=== PATIENT | female | born 1940 | race African-American/Black ===

== ENCOUNTER 2022-12-29 09:59 | Outpatient (CLI) | payer OTHER | END 2022-12-29 10:00 | disposition home or self-care (01) | LOC: CSHWCC 09:59 | PROVIDERS: ATTEND Nurse Practitioner Family | DX: L89.222 Pressure ulcer of left hip, stage 2 (principal) | CPT/HCPCS: 97139; G0463; 99203 ==

== ENCOUNTER 2023-02-20 10:52 | Inpatient (IN) | payer OTHER ==
[2023-02-20 11:25] LABS: #Monocytes 0.7 10x3/uL (0.0-1.1); %Basophils 0.2 % (0.0-2.0); %Eosinophils 0.1 % (0.0-6.0); %Lymphocytes 7.2 % (18.0-47.0); %Monocytes 6.4 % (0.0-10.0); %Neutrophils 85.3 % (40.0-75.0); Hematocrit 29.4 % (34.9-44.5); Hemoglobin 9.5 g/dL (12.0-15.5); Mean Corpuscular HGB CONC 32.3 g/dL (32.0-36.0); Mean Corpuscular Volume 80.3 fl (81.6-98.3); Mean Platelet Volume 11.3 fl (7.4-10.4); Platelet Count 283 10x3/uL (150-450); RBC Distribution Width 16.5 % (11.5-14.5); Red Blood Cell (RBC) Count 3.66 10x6/uL (3.90-5.03); White Blood Cell (WBC) Count 10.6 10x3/uL (3.5-10.5)
[2023-02-20 11:41] LABS: ALT (SGPT) 8 U/L (8-55); AST (SGOT) 18 U/L (5-34); Alkaline Phosphatase 69 U/L (40-110); Anion Gap 16 mmol/L (10-20); BUN (Urea Nitrogen) 20 mg/dL (9.8-20.1); Bilirubin, Total 1.1 mg/dL (0.2-1.2); Calc. Creatinine Clearance 0 mL/min (70-130); Calcium 8.9 mg/dL (7.8-10.44); Carbon Dioxide 19 mmol/L (23-31); Chloride 108 mmol/L (98-107); Estimated GFR 40; Globulin 5.9 g/dL (2.4-3.5); Glucose 91 mg/dL (83-110); Potassium 3.6 mmol/L (3.5-5.1); Protein, Total 8.9 g/dL (5.8-8.1); Sodium 139 mmol/L (136-145)
[2023-02-20] MEDS ORDERED: Furosemide 100 MG/10 ML VIAL ONE (12:55)
[2023-02-20] MEDS ORDERED: Vancomycin 1 GM VIAL ONE (13:18)
[2023-02-20 13:25] LABS: Bilirubin Neg (Negative); Blood, Urine 10 (Negative); Clarity Slightly Cloudy (Clear); Glucose, Urine (Dipstick) Normal (Negative); Ketone, Urine 5 mg/dL (Negative); Leukocyte 100 (Negative); Nitrite Negative (Negative); Protein, Urine (Dipstick) 30 mg/dl (Neg-Trace)
[2023-02-20] MEDS ORDERED: cefTRIAXone (ROCEPHIN) 2 GM VIAL ONE (13:28)
[2023-02-20 13:40] LABS: Bacteria/HPF 3+ HPF (None Seen); CAUTI Indications for Culture Alt mental st,lethar; RBC/HPF 0-3 HPF (0-3)
[2023-02-20 13:41] LABS: Urine Culture Reflex No No
[2023-02-20] MEDS ORDERED: dilTIAZem 125 MG/25 ML SDV ONE (13:55)
[2023-02-20] MEDS ORDERED: Aspirin Chewable 81 MG TAB ONE (13:57)
[2023-02-20] MEDS ORDERED: Digoxin 0.5 MG/2 ML AMP ONE ×2 (15:00→16:17)
[2023-02-20] MEDS ORDERED: Ondansetron PF 4 MG/2 ML Vial IVP PRN (15:13)
[2023-02-20 15:21] LABS: Actual Bicarbonate (HCO3a) 19.1 mEq/L (22-28); Base Excess (BEa) -2.2 mEq/L (-2.0 to +3.0); CO2 Tension 22.9 mmHg (35.0-45.0); Calcium, Ionized (arterial) 1.14 mmol/L (1.12-1.30); Carboxyhemoglobin (COHb) 0.9 gm% (0.0-3.0); Hematocrit-ABG 31 % (36.0-47.0); Hemoglobin (Hb) 10.7 g/dL (12.0-16.0); O2 Tension (PaO2), arterial 95.8 mmHg (> 60.0); Potassium - ABG Lab 3.53 mmol/L (3.70-5.30); Puncture Site LBA; pH, Arterial 7.538 (7.35-7.45)
[2023-02-20 15:25] LABS: ALV-art Gradient 75.215 mmHg (0-20)
[2023-02-20] MEDS ORDERED: Lidocaine 1% w/Epinephrine 1:200K 30 ML VIAL ONE (15:44)
[2023-02-20 16:41] LABS: Magnesium 1.7 mg/dL (1.6-2.6); Phosphorus 3.3 mg/dL (2.3-4.7)
[2023-02-20] MEDS ORDERED: Amiodarone 150 MG/3 ML VIAL ONE (16:44)
[2023-02-20] MEDS ORDERED: Amiodarone In Dextrose 200 ML ONE (16:44)
[2023-02-20 16:54] LABS: Lactic Acid 1.5 mmol/L (0.5-2.2)
[2023-02-20] MEDS ORDERED: Meropenem 1 GM in Sodium Chloride 0.9% 100 ML IVPB SCH (18:00)
[2023-02-20] MEDS ORDERED: Amiodarone In Dextrose 200 ML IVPB SCH (19:00)
[2023-02-21] MEDS: Meropenem 1 GM in Sodium Chloride 0.9% 100 ML IVPB SCH ×2 (02:11→14:31)
[2023-02-21 04:24] LABS: Anion Gap 14 mmol/L (10-20); BUN (Urea Nitrogen) 23 mg/dL (9.8-20.1); Calc. Creatinine Clearance 53 mL/min (70-130); Calcium 8.4 mg/dL (7.8-10.44); Carbon Dioxide 18 mmol/L (23-31); Chloride 111 mmol/L (98-107); Estimated GFR 44; Glucose 90 mg/dL (83-110); Potassium 3.2 mmol/L (3.5-5.1); Sodium 140 mmol/L (136-145)
[2023-02-21 04:25] LABS: Hematocrit 27.9 % (34.9-44.5); Hemoglobin 8.8 g/dL (12.0-15.5); Mean Corpuscular HGB CONC 31.5 g/dL (32.0-36.0); Mean Corpuscular Hemoglobin 25.9 pg (27.0-33.0); Mean Corpuscular Volume 82.1 fl (81.6-98.3); Mean Platelet Volume 10.3 fl (7.4-10.4); Platelet Count 230 10x3/uL (150-450); RBC Distribution Width 16.7 % (11.5-14.5); White Blood Cell (WBC) Count 13.3 10x3/uL (3.5-10.5)
[2023-02-21 04:26] LABS: MDiff Complete? YES
[2023-02-21] MEDS ORDERED: Oseltamivir 75 MG CAP PO SCH (05:00)
[2023-02-21] MEDS: Acetaminophen 325 MG TAB PO PRN (05:08)
[2023-02-21] MEDS ORDERED: DC Electrolyte Protocol FS ONE (06:22)
[2023-02-21] MEDS ORDERED: Potassium Chloride 20 MEQ TAB PO SCH ×3 (06:30→12:00)
[2023-02-21] MEDS ORDERED: Electrolyte Replacement Protocol 1 EACH FS PRN (06:37)
[2023-02-21] MEDS ORDERED: Magnesium 2 GM/50 ML(in water) 2 GM in Premix Bag 1 BAG IVPB SCH (06:45)
[2023-02-21 06:48] LABS: Band 2 % (5-11); Lymphocytes 6 % (21-51); Monocytes 11 % (0-10); Neutrophil 81 % (42-75)
[2023-02-21 06:53] LABS: Hypochromia SLIGHT = 6-15 cells (100X) (0-5/hpf); Ovalocytes SLIGHT = 2-5 cells (100X) (0-1/hpf); Platelet Adequacy Comment Appears Adequate
[2023-02-21] MEDS: Doxycycline 100 MG in Sodium Chloride 0.9% 100 ML IVPB SCH ×2 (08:40→21:43)
[2023-02-21] MEDS ORDERED: Potassium Chloride 20 MEQ in Premix Bag 1 BAG IVPB SCH (09:45)
[2023-02-21] MEDS: Amiodarone 200 MG TAB PO SCH ×2 (11:36→21:43)
[2023-02-21] MEDS ORDERED: Acetaminophen 500 MG TAB PO PRN (14:57)
[2023-02-21 19:41] LABS: Anion Gap 15 mmol/L (10-20); BUN (Urea Nitrogen) 29 mg/dL (9.8-20.1); Calc. Creatinine Clearance 29 mL/min (70-130); Calcium 8.6 mg/dL (7.8-10.44); Carbon Dioxide 18 mmol/L (23-31); Chloride 110 mmol/L (98-107); Estimated GFR 33; Glucose 94 mg/dL (83-110); Sodium 139 mmol/L (136-145)
[2023-02-21] MEDS: Oseltamivir 6 MG/ML ORAL SUSP PO SCH (21:43)
[2023-02-22] MEDS: Meropenem 1 GM in Sodium Chloride 0.9% 100 ML IVPB SCH ×2 (01:18→14:05)
[2023-02-22 05:40] LABS: Anion Gap 15 mmol/L (10-20); BUN (Urea Nitrogen) 27 mg/dL (9.8-20.1); Calc. Creatinine Clearance 35 mL/min (70-130); Calcium 8.5 mg/dL (7.8-10.44); Carbon Dioxide 17 mmol/L (23-31); Chloride 113 mmol/L (98-107); Estimated GFR 41; Glucose 79 mg/dL (83-110); Magnesium 2.1 mg/dL (1.6-2.6); Potassium 4.1 mmol/L (3.5-5.1); Sodium 141 mmol/L (136-145)
[2023-02-22 05:42] LABS: #Monocytes 0.9 10x3/uL (0.0-1.1); #Neutrophils 9.8 10x3/uL (1.5-8.4); %Basophils 0.1 % (0.0-2.0); %Eosinophils 0.3 % (0.0-6.0); %Lymphocytes 8.1 % (18.0-47.0); %Monocytes 7.5 % (0.0-10.0); %Neutrophils 83.7 % (40.0-75.0); Hematocrit 28.8 % (34.9-44.5); Hemoglobin 8.8 g/dL (12.0-15.5); Mean Corpuscular HGB CONC 30.6 g/dL (32.0-36.0); Mean Corpuscular Hemoglobin 25.8 pg (27.0-33.0); Mean Corpuscular Volume 84.5 fl (81.6-98.3); Mean Platelet Volume 11.5 fl (7.4-10.4); Platelet Count 242 10x3/uL (150-450); RBC Distribution Width 17.2 % (11.5-14.5); Red Blood Cell (RBC) Count 3.41 10x6/uL (3.90-5.03); White Blood Cell (WBC) Count 11.7 10x3/uL (3.5-10.5)
[2023-02-22] MEDS: Atorvastatin Calcium 10 MG TAB PO SCH (08:17)
[2023-02-22] MEDS: Aspirin 81 mg Enteric Coated Tablet PO SCH (08:18)
[2023-02-22] MEDS: Losartan Potassium 50 MG TAB PO SCH (08:18)
[2023-02-22] MEDS: Doxycycline 100 MG in Sodium Chloride 0.9% 100 ML IVPB SCH ×2 (08:21→20:24)
[2023-02-22] MEDS: Oseltamivir 6 MG/ML ORAL SUSP PO SCH ×2 (08:23→20:23)
[2023-02-22] MEDS: Amiodarone 200 MG TAB PO SCH ×2 (09:50→21:02)
[2023-02-22] MEDS ORDERED: Metoprolol Tartrate 5 MG/5 ML VIAL ONE (23:33)
[2023-02-22] MEDS ORDERED: Magnesium Sulfate/D5W 1 GM/100 ML BAG IVPB SCH (23:45)
[2023-02-22] MEDS ORDERED: Metoprolol Tartrate 5 MG/5 ML VIAL IVP SCH (23:45)
[2023-02-22] MEDS ORDERED: Digoxin 0.5 MG/2 ML AMP SLOW IVP SCH (23:45)
[2023-02-23] MEDS ORDERED: Amiodarone 150 MG in Dextrose 5% in Water 100 ML IVPB SCH (01:00)
[2023-02-23] MEDS ORDERED: Amiodarone In Dextrose 200 ML IVPB SCH (01:45)
[2023-02-23] MEDS: Meropenem 1 GM in Sodium Chloride 0.9% 100 ML IVPB SCH ×2 (02:03→13:02)
[2023-02-23 06:32] LABS: Anion Gap 13 mmol/L (10-20); BUN (Urea Nitrogen) 27 mg/dL (9.8-20.1); Calc. Creatinine Clearance 58 mL/min (70-130); Calcium 8.6 mg/dL (7.8-10.44); Carbon Dioxide 18 mmol/L (23-31); Chloride 113 mmol/L (98-107); Estimated GFR 47; Glucose 97 mg/dL (83-110); Magnesium 2.2 mg/dL (1.6-2.6); Potassium 3.7 mmol/L (3.5-5.1); Sodium 140 mmol/L (136-145)
[2023-02-23] MEDS: Doxycycline 100 MG in Sodium Chloride 0.9% 100 ML IVPB SCH (10:33)
[2023-02-23] MEDS: Oseltamivir 6 MG/ML ORAL SUSP PO SCH ×2 (10:35→21:17)
[2023-02-23] MEDS: Amiodarone 200 MG TAB PO SCH ×2 (10:38→21:17)
[2023-02-23] MEDS: Aspirin 81 mg Enteric Coated Tablet PO SCH (10:38)
[2023-02-23] MEDS: Losartan Potassium 50 MG TAB PO SCH (10:39)
[2023-02-23] MEDS: Atorvastatin Calcium 10 MG TAB PO SCH (10:39)
[2023-02-23] MEDS: Doxycycline 100 MG CAP PO SCH (21:39)
[2023-02-24] MEDS: Meropenem 1 GM in Sodium Chloride 0.9% 100 ML IVPB SCH ×2 (02:08→13:00)
[2023-02-24 04:51] LABS: #Eosinphils 0.1 10x3/uL (0.0-0.5); #Monocytes 0.8 10x3/uL (0.0-1.1); #Neutrophils 5.2 10x3/uL (1.5-8.4); %Basophils 0.3 % (0.0-2.0); %Eosinophils 1.7 % (0.0-6.0); %Lymphocytes 17.8 % (18.0-47.0); %Monocytes 10.2 % (0.0-10.0); %Neutrophils 69.3 % (40.0-75.0); Hematocrit 25.4 % (34.9-44.5); Hemoglobin 7.9 g/dL (12.0-15.5); Mean Corpuscular HGB CONC 31.1 g/dL (32.0-36.0); Mean Corpuscular Hemoglobin 25.6 pg (27.0-33.0); Mean Corpuscular Volume 82.2 fl (81.6-98.3); Mean Platelet Volume 10.9 fl (7.4-10.4); Platelet Count 274 10x3/uL (150-450); RBC Distribution Width 17.1 % (11.5-14.5); Red Blood Cell (RBC) Count 3.09 10x6/uL (3.90-5.03); White Blood Cell (WBC) Count 7.5 10x3/uL (3.5-10.5)
[2023-02-24 05:11] LABS: Anion Gap 11 mmol/L (10-20); BUN (Urea Nitrogen) 24 mg/dL (9.8-20.1); Calc. Creatinine Clearance 60 mL/min (70-130); Calcium 8.5 mg/dL (7.8-10.44); Carbon Dioxide 21 mmol/L (23-31); Chloride 113 mmol/L (98-107); Estimated GFR 50; Glucose 98 mg/dL (83-110); Potassium 3.8 mmol/L (3.5-5.1); Sodium 141 mmol/L (136-145)
[2023-02-24] MEDS: Oseltamivir 6 MG/ML ORAL SUSP PO SCH ×2 (09:09→21:46)
[2023-02-24] MEDS: Acetaminophen 325 MG TAB PO PRN (09:10)
[2023-02-24] MEDS: Amiodarone 200 MG TAB PO SCH ×2 (09:11→21:45)
[2023-02-24] MEDS: Aspirin 81 mg Enteric Coated Tablet PO SCH (09:11)
[2023-02-24] MEDS: Atorvastatin Calcium 10 MG TAB PO SCH (09:11)
[2023-02-24] MEDS: Losartan Potassium 50 MG TAB PO SCH (09:11)
[2023-02-24] MEDS: Doxycycline 100 MG CAP PO SCH ×2 (09:12→21:45)
[2023-02-25] MEDS: Meropenem 1 GM in Sodium Chloride 0.9% 100 ML IVPB SCH ×2 (02:45→14:47)
[2023-02-25 05:11] LABS: #Eosinphils 0.2 10x3/uL (0.0-0.5); #Monocytes 0.7 10x3/uL (0.0-1.1); #Neutrophils 4.4 10x3/uL (1.5-8.4); %Basophils 0.3 % (0.0-2.0); %Eosinophils 2.3 % (0.0-6.0); %Lymphocytes 18.5 % (18.0-47.0); %Monocytes 10.5 % (0.0-10.0); %Neutrophils 67.2 % (40.0-75.0); Hematocrit 27.3 % (34.9-44.5); Hemoglobin 8.5 g/dL (12.0-15.5); Mean Corpuscular HGB CONC 31.1 g/dL (32.0-36.0); Mean Corpuscular Hemoglobin 25.4 pg (27.0-33.0); Mean Corpuscular Volume 81.7 fl (81.6-98.3); Platelet Count 321 10x3/uL (150-450); RBC Distribution Width 16.9 % (11.5-14.5); Red Blood Cell (RBC) Count 3.34 10x6/uL (3.90-5.03); White Blood Cell (WBC) Count 6.5 10x3/uL (3.5-10.5)
[2023-02-25 05:28] LABS: Anion Gap 11 mmol/L (10-20); BUN (Urea Nitrogen) 19 mg/dL (9.8-20.1); Calc. Creatinine Clearance 73 mL/min (70-130); Calcium 8.5 mg/dL (7.8-10.44); Carbon Dioxide 21 mmol/L (23-31); Chloride 112 mmol/L (98-107); Estimated GFR 65; Glucose 88 mg/dL (83-110); Potassium 3.7 mmol/L (3.5-5.1); Sodium 140 mmol/L (136-145)
[2023-02-25] MEDS: Aspirin 81 mg Enteric Coated Tablet PO SCH (09:41)
[2023-02-25] MEDS: Doxycycline 100 MG CAP PO SCH ×2 (09:41→19:38)
[2023-02-25] MEDS: Atorvastatin Calcium 10 MG TAB PO SCH (09:41)
[2023-02-25] MEDS: Losartan Potassium 50 MG TAB PO SCH (09:42)
[2023-02-25] MEDS: Oseltamivir 6 MG/ML ORAL SUSP PO SCH ×2 (10:10→19:38)
[2023-02-25] MEDS: Amiodarone 200 MG TAB PO SCH (10:10)
[2023-02-25] MEDS ORDERED: Magnesium Sulfate/D5W 1 GM/100 ML BAG IVPB SCH (18:00)
[2023-02-26] MEDS ORDERED: Magnesium Sulfate/D5W 1 GM/100 ML BAG IVPB SCH (03:45)
[2023-02-26] MEDS: Losartan Potassium 50 MG TAB PO SCH (09:39)
[2023-02-26] MEDS: Aspirin 81 mg Enteric Coated Tablet PO SCH (09:39)
[2023-02-26] MEDS: Atorvastatin Calcium 10 MG TAB PO SCH (09:39)
[2023-02-26] MEDS: Oseltamivir 6 MG/ML ORAL SUSP PO SCH (20:44)
[2023-02-27 05:12] LABS: Anion Gap 12 mmol/L (10-20); BUN (Urea Nitrogen) 20 mg/dL (9.8-20.1); Calc. Creatinine Clearance 70 mL/min (70-130); Calcium 8.8 mg/dL (7.8-10.44); Carbon Dioxide 22 mmol/L (23-31); Chloride 113 mmol/L (98-107); Estimated GFR 61; Glucose 84 mg/dL (83-110); Magnesium 1.9 mg/dL (1.6-2.6); Potassium 4.4 mmol/L (3.5-5.1); Sodium 143 mmol/L (136-145)
[2023-02-27] MEDS: Oseltamivir 6 MG/ML ORAL SUSP PO SCH (08:23)
[2023-02-27] MEDS: Acetaminophen 325 MG TAB PO PRN (08:32)
[2023-02-27] MEDS: Aspirin 81 mg Enteric Coated Tablet PO SCH (08:32)
[2023-02-27] MEDS: Losartan Potassium 50 MG TAB PO SCH (08:32)
[2023-02-27] MEDS: Atorvastatin Calcium 10 MG TAB PO SCH (08:32)
[2023-02-27] MEDS ORDERED: Magnesium 2 GM/50 ML(in water) 2 GM in Premix Bag 1 BAG IVPB SCH (09:00)
[2023-02-27 11:01] VITALS: BMI 33.6
[2023-02-27] MEDS ORDERED: Amlodipine 5 MG TAB PO SCH (11:30)
[2023-02-27 16:33] VITALS: BP 149/80; TEMP 98
[2023-02-28] MEDS ORDERED: Amlodipine 5 MG TAB PO SCH (09:00)
== END 2023-02-27 16:33 | disposition home health service (06) | DRG 871 ==
LOC: CSHERS 10:52 → CSHICU 17:25 → CSHTELE 02-23 07:59
PROVIDERS: ADMIT Internal Medicine; ATTEND Internal Medicine
PROC: 4A033R1 Measurement of Arterial Saturation, Peripheral, Percutaneous Approach (ICD-10-PCS; principal; 2023-02-20)
PROC: 3E03329 Introduction of Other Anti-infective into Peripheral Vein, Percutaneous Approach (ICD-10-PCS; 2023-02-20)
DX: A41.9 Sepsis, unspecified organism (principal); I50.43 Acute on chronic combined systolic (congestive) and diastolic (congestive) heart failure; J18.9 Pneumonia, unspecified organism; J96.01 Acute respiratory failure with hypoxia; J69.0 Pneumonitis due to inhalation of food and vomit; I13.0 Hypertensive heart and chronic kidney disease with heart failure and stage 1 through stage 4 chronic kidney disease, or unspecified chronic kidney disease; I42.9 Cardiomyopathy, unspecified; N17.9 Acute kidney failure, unspecified; E87.21 Acute metabolic acidosis; I48.0 Paroxysmal atrial fibrillation; R65.20 Severe sepsis without septic shock; F17.210 Nicotine dependence, cigarettes, uncomplicated; D63.1 Anemia in chronic kidney disease; J10.1 Influenza due to other identified influenza virus with other respiratory manifestations; E66.9 Obesity, unspecified; E87.6 Hypokalemia; N18.30 Chronic kidney disease, stage 3 unspecified; R29.6 Repeated falls; Z68.33 Body mass index [BMI] 33.0-33.9, adult; Z79.899 Other long term (current) drug therapy; Z90.710 Acquired absence of both cervix and uterus; Z79.82 Long term (current) use of aspirin
CPT/HCPCS: 36415; 36416; 36600; 70450; 71045; 80048; 80053; 81001; 82805; 83605; 83735; 83880; 84100; 84145; 85025; 87040; 87149; 87804; 87807; 93005; 93010; 94760; 94762; 96372; 96374; 96375; 97139; 99152; J0282; J0283; J0696; J1160; J1650; J1940; J2185; J3370; J3475; J3490; J7070

== ENCOUNTER 2023-03-19 10:52 | Inpatient (IN) | payer OTHER ==
[2023-03-19 12:07] LABS: Troponin I 0.073 ng/mL (< 0.028)
[2023-03-19 12:10] LABS: ALT (SGPT) 21 U/L (8-55); AST (SGOT) 25 U/L (5-34); Albumin 2.7 g/dL (3.4-4.8); Alkaline Phosphatase 76 U/L (40-110); Anion Gap 15 mmol/L (10-20); BUN (Urea Nitrogen) 24 mg/dL (9.8-20.1); Bilirubin, Total 0.5 mg/dL (0.2-1.2); Calc. Creatinine Clearance 0 mL/min (70-130); Calcium 8.9 mg/dL (7.8-10.44); Carbon Dioxide 18 mmol/L (23-31); Chloride 115 mmol/L (98-107); Estimated GFR 41; Globulin 5.2 g/dL (2.4-3.5); Glucose 86 mg/dL (83-110); Potassium 4.2 mmol/L (3.5-5.1); Protein, Total 7.9 g/dL (5.8-8.1); Sodium 144 mmol/L (136-145)
[2023-03-19] MEDS ORDERED: Iopamidol 300 61% 100 ML VIAL FS ONE (12:20)
[2023-03-19 12:35] LABS: Bilirubin Neg (Negative); Blood, Urine Negative (Negative); Clarity Slightly Cloudy (Clear); Glucose, Urine (Dipstick) Normal (Negative); Ketone, Urine Negative (Negative); Leukocyte 25 (Negative); Nitrite Negative (Negative); Protein, Urine (Dipstick) 30 mg/dl (Neg-Trace); Specific Gravity, Urine 1.015 (1.005-1.030)
[2023-03-19 12:45] LABS: Bacteria/HPF 1+ HPF (None Seen); CAUTI Indications for Culture Alt mental st,lethar; RBC/HPF 0-3 HPF (0-3)
[2023-03-19 12:47] LABS: Urine Culture Reflex No No
[2023-03-19] MEDS ORDERED: Cefepime 2 GM VIAL ONE (13:04)
[2023-03-19] MEDS ORDERED: Vancomycin 1.5 GRAM/300 ML BAG 1.5 GM in Premix Bag 1 BAG IVPB SCH (13:15)
[2023-03-19 13:47] LABS: #Monocytes 0.1 10x3/uL (0.0-1.1); #Neutrophils 8.7 10x3/uL (1.5-8.4); %Basophils 0.1 % (0.0-2.0); %Eosinophils 0.3 % (0.0-6.0); %Lymphocytes 5.2 % (18.0-47.0); %Monocytes 0.9 % (0.0-10.0); %Neutrophils 92.5 % (40.0-75.0); Hematocrit 26.6 % (34.9-44.5); Hemoglobin 8.2 g/dL (12.0-15.5); Mean Corpuscular HGB CONC 30.8 g/dL (32.0-36.0); Mean Corpuscular Hemoglobin 24.7 pg (27.0-33.0); Mean Corpuscular Volume 80.1 fl (81.6-98.3); Mean Platelet Volume 10.5 fl (7.4-10.4); Platelet Count 360 10x3/uL (150-450); RBC Distribution Width 17.5 % (11.5-14.5); Red Blood Cell (RBC) Count 3.32 10x6/uL (3.90-5.03); White Blood Cell (WBC) Count 9.4 10x3/uL (3.5-10.5)
[2023-03-19 15:59] LABS: Magnesium Less than 0.6 mg/dL (1.6-2.6)
[2023-03-19] MEDS ORDERED: Magnesium 2 GM/50 ML BAG (IN WATER) ONE (16:57)
[2023-03-19] MEDS: Magnesium 2 GM/50 ML(in water) 2 GM in Premix Bag 1 BAG IVPB SCH ×2 (17:14→23:40)
[2023-03-19] MEDS ORDERED: cefTRIAXone\\ROCEPHIN 1 GM in Sodium Chloride 0.9% 100 ML IVPB SCH (18:00)
[2023-03-19 18:30] LABS: Troponin I 0.073 ng/mL (< 0.028)
[2023-03-19] MEDS ORDERED: Magnesium 2 GM/50 ML(in water) 2 GM in Premix Bag 1 BAG IVPB SCH (21:45)
[2023-03-19] MEDS: cefTRIAXone\\ROCEPHIN 1 GM in Sodium Chloride 0.9% 100 ML IVPB SCH (21:54)
[2023-03-19] MEDS: Apixaban 5 MG TAB PO SCH (21:58)
[2023-03-20 04:36] LABS: #Eosinphils 0.1 10x3/uL (0.0-0.5); #Monocytes 0.9 10x3/uL (0.0-1.1); #Neutrophils 9.7 10x3/uL (1.5-8.4); %Basophils 0.2 % (0.0-2.0); %Eosinophils 0.5 % (0.0-6.0); %Lymphocytes 8.3 % (18.0-47.0); %Monocytes 7.6 % (0.0-10.0); %Neutrophils 82.5 % (40.0-75.0); Hematocrit 23.8 % (34.9-44.5); Hemoglobin 7.4 g/dL (12.0-15.5); Mean Corpuscular HGB CONC 31.1 g/dL (32.0-36.0); Mean Corpuscular Hemoglobin 24.4 pg (27.0-33.0); Mean Corpuscular Volume 78.5 fl (81.6-98.3); Mean Platelet Volume 10.5 fl (7.4-10.4); Platelet Count 277 10x3/uL (150-450); RBC Distribution Width 17.3 % (11.5-14.5); Red Blood Cell (RBC) Count 3.03 10x6/uL (3.90-5.03); White Blood Cell (WBC) Count 11.8 10x3/uL (3.5-10.5)
[2023-03-20 04:45] LABS: ALT (SGPT) 15 U/L (8-55); AST (SGOT) 18 U/L (5-34); Alkaline Phosphatase 62 U/L (40-110); Anion Gap 12 mmol/L (10-20); BUN (Urea Nitrogen) 21 mg/dL (9.8-20.1); Bilirubin, Total 0.4 mg/dL (0.2-1.2); Calc. Creatinine Clearance 57 mL/min (70-130); Calcium 8.1 mg/dL (7.8-10.44); Carbon Dioxide 18 mmol/L (23-31); Chloride 116 mmol/L (98-107); Estimated GFR 47; Globulin 4.1 g/dL (2.4-3.5); Glucose 72 mg/dL (83-110); Magnesium 2.3 mg/dL (1.6-2.6); Potassium 3.3 mmol/L (3.5-5.1); Protein, Total 6.1 g/dL (5.8-8.1); Sodium 143 mmol/L (136-145)
[2023-03-20] MEDS: Furosemide 40 MG/4 ML VIAL SLOW IVP SCH ×2 (06:44→13:46)
[2023-03-20] MEDS: Aspirin 81 mg Enteric Coated Tablet PO SCH (08:44)
[2023-03-20] MEDS: Acetaminophen 325 MG TAB PO PRN (08:44)
[2023-03-20] MEDS: Magnesium Oxide 400 MG TAB PO SCH (08:44)
[2023-03-20] MEDS: Apixaban 5 MG TAB PO SCH ×2 (08:44→21:30)
[2023-03-20] MEDS ORDERED: Bisacodyl 10 MG SUPP PR PRN (13:47)
[2023-03-20] MEDS ORDERED: Mineral Oil ENEMA PR SCH (14:00)
[2023-03-20] MEDS: Potassium Chloride 20 MEQ TAB PO SCH ×2 (14:22→21:30)
[2023-03-20] MEDS: cefTRIAXone\\ROCEPHIN 1 GM in Sodium Chloride 0.9% 100 ML IVPB SCH (21:29)
[2023-03-20] MEDS: Senokot S 8.6-50 MG TAB PO SCH (21:30)
[2023-03-21] MEDS: Potassium Chloride 20 MEQ TAB PO SCH (03:14)
[2023-03-21] MEDS: Furosemide 40 MG/4 ML VIAL SLOW IVP SCH ×2 (05:58→13:34)
[2023-03-21] MEDS: Acetaminophen 325 MG TAB PO PRN ×2 (08:06→17:30)
[2023-03-21] MEDS: Polyethylene Glycol 3350 17 GM Packet PO SCH (08:06)
[2023-03-21] MEDS: Senokot S 8.6-50 MG TAB PO SCH ×2 (08:07→21:02)
[2023-03-21] MEDS: Aspirin 81 mg Enteric Coated Tablet PO SCH (08:07)
[2023-03-21] MEDS: Apixaban 5 MG TAB PO SCH (08:07)
[2023-03-21] MEDS: Magnesium Oxide 400 MG TAB PO SCH (08:07)
[2023-03-21 09:01] LABS: #Eosinphils 0.2 10x3/uL (0.0-0.5); #Monocytes 0.5 10x3/uL (0.0-1.1); #Neutrophils 5.5 10x3/uL (1.5-8.4); %Basophils 0.1 % (0.0-2.0); %Monocytes 6.9 % (0.0-10.0); %Neutrophils 75.1 % (40.0-75.0); Anion Gap 14 mmol/L (10-20); BUN (Urea Nitrogen) 25 mg/dL (9.8-20.1); Calc. Creatinine Clearance 52 mL/min (70-130); Calcium 8.3 mg/dL (7.8-10.44); Carbon Dioxide 19 mmol/L (23-31); Chloride 115 mmol/L (98-107); Estimated GFR 42; Glucose 101 mg/dL (83-110); Hemoglobin 6.7 g/dL (12.0-15.5); Mean Corpuscular HGB CONC 31.9 g/dL (32.0-36.0); Mean Corpuscular Volume 78.4 fl (81.6-98.3); Mean Platelet Volume 10.5 fl (7.4-10.4); Platelet Count 299 10x3/uL (150-450); RBC Distribution Width 17.3 % (11.5-14.5); Red Blood Cell (RBC) Count 2.68 10x6/uL (3.90-5.03); Sodium 144 mmol/L (136-145); White Blood Cell (WBC) Count 7.4 10x3/uL (3.5-10.5)
[2023-03-21] MEDS ORDERED: GoLYTELY 4,000 ml Bottle PO SCH (11:00)
[2023-03-21] MEDS: cefTRIAXone\\ROCEPHIN 2 GM in Sodium Chloride 0.9% 100 ML IVPB SCH (21:01)
[2023-03-22 04:53] LABS: Hematocrit 26.6 % (34.9-44.5); Hemoglobin 8.5 g/dL (12.0-15.5)
[2023-03-22 04:59] LABS: Anion Gap 13 mmol/L (10-20); BUN (Urea Nitrogen) 19 mg/dL (9.8-20.1); Calc. Creatinine Clearance 62 mL/min (70-130); Carbon Dioxide 23 mmol/L (23-31); Chloride 114 mmol/L (98-107); Estimated GFR 53; Glucose 102 mg/dL (83-110); Potassium 3.4 mmol/L (3.5-5.1); Sodium 147 mmol/L (136-145)
[2023-03-22] MEDS: Furosemide 40 MG/4 ML VIAL SLOW IVP SCH (06:29)
[2023-03-22] MEDS ORDERED: Losartan Potassium 50 MG TAB PO SCH (09:00)
[2023-03-22] MEDS: Magnesium Oxide 400 MG TAB PO SCH (10:13)
[2023-03-22] MEDS: Polyethylene Glycol 3350 17 GM Packet PO SCH (10:16)
[2023-03-22] MEDS: Senokot S 8.6-50 MG TAB PO SCH ×2 (10:16→21:56)
[2023-03-22] MEDS: Furosemide 40 MG TAB PO SCH (10:18)
[2023-03-22] MEDS ORDERED: dilTIAZem 25 MG/5 ML VIAL SLOW IVP SCH (13:00)
[2023-03-22] MEDS ORDERED: dilTIAZem 125 MG in Sodium Chloride 0.9% 100 ML IVPB SCH (13:00)
[2023-03-22] MEDS: cefTRIAXone\\ROCEPHIN 2 GM in Sodium Chloride 0.9% 100 ML IVPB SCH (21:54)
[2023-03-22] MEDS: Atorvastatin Calcium 10 MG TAB PO SCH (21:54)
[2023-03-22] MEDS: hydrALAZINE 25 MG TAB PO SCH (21:54)
[2023-03-22] MEDS: Isosorbide Dinitrate 20 MG TAB PO SCH (21:55)
[2023-03-23 05:07] LABS: Anion Gap 13 mmol/L (10-20); BUN (Urea Nitrogen) 15 mg/dL (9.8-20.1); Calc. Creatinine Clearance 64 mL/min (70-130); Calcium 7.8 mg/dL (7.8-10.44); Carbon Dioxide 25 mmol/L (23-31); Chloride 107 mmol/L (98-107); Estimated GFR 55; Glucose 105 mg/dL (83-110); Potassium 3.2 mmol/L (3.5-5.1); Sodium 142 mmol/L (136-145)
[2023-03-23] MEDS: Isosorbide Dinitrate 20 MG TAB PO SCH ×2 (09:04→21:32)
[2023-03-23] MEDS: Furosemide 40 MG TAB PO SCH (09:05)
[2023-03-23] MEDS: hydrALAZINE 25 MG TAB PO SCH ×2 (09:05→21:22)
[2023-03-23] MEDS: Magnesium Oxide 400 MG TAB PO SCH (09:05)
[2023-03-23] MEDS: Losartan 25 MG TAB PO SCH (09:05)
[2023-03-23] MEDS: Polyethylene Glycol 3350 17 GM Packet PO SCH (09:06)
[2023-03-23] MEDS: Senokot S 8.6-50 MG TAB PO SCH ×2 (09:06→21:22)
[2023-03-23] MEDS ORDERED: Pantoprazole 40 MG VIAL IVP SCH (10:00)
[2023-03-23] MEDS: cefTRIAXone\\ROCEPHIN 2 GM in Sodium Chloride 0.9% 100 ML IVPB SCH (21:22)
[2023-03-23] MEDS: Atorvastatin Calcium 10 MG TAB PO SCH (21:22)
[2023-03-23] MEDS: Acetaminophen 325 MG TAB PO PRN (21:30)
[2023-03-24 06:19] LABS: Anion Gap 12 mmol/L (10-20); BUN (Urea Nitrogen) 13 mg/dL (9.8-20.1); Calc. Creatinine Clearance 63 mL/min (70-130); Carbon Dioxide 26 mmol/L (23-31); Chloride 105 mmol/L (98-107); Estimated GFR 54; Glucose 82 mg/dL (83-110); Potassium 3.4 mmol/L (3.5-5.1); Sodium 140 mmol/L (136-145)
[2023-03-24] MEDS: Isosorbide Dinitrate 20 MG TAB PO SCH ×2 (08:45→22:19)
[2023-03-24] MEDS: Pantoprazole 40 MG VIAL IVP SCH (08:45)
[2023-03-24] MEDS: Furosemide 40 MG TAB PO SCH (08:45)
[2023-03-24] MEDS: Magnesium Oxide 400 MG TAB PO SCH (08:45)
[2023-03-24] MEDS: hydrALAZINE 25 MG TAB PO SCH ×2 (08:45→22:18)
[2023-03-24] MEDS: Losartan 25 MG TAB PO SCH (08:45)
[2023-03-24] MEDS: Senokot S 8.6-50 MG TAB PO SCH (08:46)
[2023-03-24] MEDS: Polyethylene Glycol 3350 17 GM Packet PO SCH (08:46)
[2023-03-24] MEDS: Atorvastatin Calcium 10 MG TAB PO SCH (22:19)
[2023-03-24] MEDS: cefTRIAXone\\ROCEPHIN 2 GM in Sodium Chloride 0.9% 100 ML IVPB SCH (22:21)
[2023-03-25] MEDS: Senokot S 8.6-50 MG TAB PO SCH ×3 (01:14→21:44)
[2023-03-25] MEDS: cefTRIAXone\\ROCEPHIN 2 GM in Sodium Chloride 0.9% 100 ML IVPB SCH ×2 (01:38→23:20)
[2023-03-25 04:41] LABS: Anion Gap 11 mmol/L (10-20); BUN (Urea Nitrogen) 14 mg/dL (9.8-20.1); Calc. Creatinine Clearance 59 mL/min (70-130); Calcium 7.9 mg/dL (7.8-10.44); Carbon Dioxide 27 mmol/L (23-31); Chloride 104 mmol/L (98-107); Estimated GFR 49; Glucose 107 mg/dL (83-110); Potassium 3.3 mmol/L (3.5-5.1); Sodium 139 mmol/L (136-145)
[2023-03-25] MEDS: Furosemide 40 MG TAB PO SCH (07:58)
[2023-03-25 08:06] LABS: #Eosinphils 0.1 10x3/uL (0.0-0.5); #Monocytes 0.5 10x3/uL (0.0-1.1); #Neutrophils 9.2 10x3/uL (1.5-8.4); %Basophils 0.2 % (0.0-2.0); %Eosinophils 1.1 % (0.0-6.0); %Lymphocytes 9.5 % (18.0-47.0); %Monocytes 4.6 % (0.0-10.0); Hematocrit 27.3 % (34.9-44.5); Hemoglobin 8.6 g/dL (12.0-15.5); Mean Corpuscular HGB CONC 31.5 g/dL (32.0-36.0); Mean Corpuscular Hemoglobin 25.4 pg (27.0-33.0); Mean Corpuscular Volume 80.8 fl (81.6-98.3); Mean Platelet Volume 10.5 fl (7.4-10.4); Platelet Count 299 10x3/uL (150-450); Red Blood Cell (RBC) Count 3.38 10x6/uL (3.90-5.03); White Blood Cell (WBC) Count 10.9 10x3/uL (3.5-10.5)
[2023-03-25 08:09] LABS: Anion Gap 10 mmol/L (10-20); BUN (Urea Nitrogen) 14 mg/dL (9.8-20.1); Calc. Creatinine Clearance 62 mL/min (70-130); Calcium 7.9 mg/dL (7.8-10.44); Carbon Dioxide 27 mmol/L (23-31); Chloride 106 mmol/L (98-107); Estimated GFR 53; Glucose 87 mg/dL (83-110); Potassium 3.4 mmol/L (3.5-5.1); Sodium 140 mmol/L (136-145)
[2023-03-25] MEDS ORDERED: Lidocaine 1% PF 5 ML VIAL ONE (09:34)
[2023-03-25] MEDS ORDERED: Sodium Bicarbonate 2.5 MEQ/5 ML VIAL ONE (09:34)
[2023-03-25] MEDS: hydrALAZINE 25 MG TAB PO SCH ×2 (09:59→21:44)
[2023-03-25] MEDS: Isosorbide Dinitrate 20 MG TAB PO SCH ×2 (09:59→21:44)
[2023-03-25] MEDS: Losartan 25 MG TAB PO SCH (10:00)
[2023-03-25] MEDS: Magnesium Oxide 400 MG TAB PO SCH (10:01)
[2023-03-25] MEDS: Pantoprazole 40 MG VIAL IVP SCH (10:02)
[2023-03-25] MEDS: Polyethylene Glycol 3350 17 GM Packet PO SCH (10:02)
[2023-03-25] MEDS: Potassium Chloride 20 MEQ TAB PO SCH ×2 (12:45→17:56)
[2023-03-25] MEDS: Atorvastatin Calcium 10 MG TAB PO SCH (21:44)
[2023-03-26] MEDS: Furosemide 40 MG TAB PO SCH (07:30)
[2023-03-26] MEDS: Potassium Chloride 20 MEQ TAB PO SCH (08:06)
[2023-03-26] MEDS: hydrALAZINE 25 MG TAB PO SCH ×2 (09:00→21:27)
[2023-03-26] MEDS: Losartan 25 MG TAB PO SCH (09:07)
[2023-03-26] MEDS: Isosorbide Dinitrate 20 MG TAB PO SCH ×2 (09:07→21:26)
[2023-03-26] MEDS: Senokot S 8.6-50 MG TAB PO SCH ×2 (09:08→21:28)
[2023-03-26] MEDS: Polyethylene Glycol 3350 17 GM Packet PO SCH (09:08)
[2023-03-26] MEDS: Magnesium Oxide 400 MG TAB PO SCH (09:08)
[2023-03-26] MEDS: Pantoprazole 40 MG VIAL IVP SCH (09:09)
[2023-03-26 10:53] VITALS: BMI 33.5
[2023-03-26] MEDS: Atorvastatin Calcium 10 MG TAB PO SCH (21:26)
[2023-03-26] MEDS: cefTRIAXone\\ROCEPHIN 2 GM in Sodium Chloride 0.9% 100 ML IVPB SCH (23:08)
[2023-03-27 08:23] VITALS: TEMP 98
[2023-03-27] MEDS: hydrALAZINE 25 MG TAB PO SCH (10:25)
[2023-03-27] MEDS: Losartan 25 MG TAB PO SCH (10:26)
[2023-03-27] MEDS: Potassium Chloride 20 MEQ TAB PO SCH (10:26)
[2023-03-27] MEDS: Furosemide 40 MG TAB PO SCH (10:27)
[2023-03-27] MEDS: Pantoprazole 40 MG VIAL IVP SCH (10:28)
[2023-03-27] MEDS: Polyethylene Glycol 3350 17 GM Packet PO SCH (10:28)
[2023-03-27] MEDS: Isosorbide Dinitrate 20 MG TAB PO SCH (10:28)
[2023-03-27] MEDS: Magnesium Oxide 400 MG TAB PO SCH (10:28)
[2023-03-27] MEDS: Senokot S 8.6-50 MG TAB PO SCH (10:29)
[2023-03-27 10:36] LABS: ALT (SGPT) 23 U/L (8-55); AST (SGOT) 35 U/L (5-34); Albumin 2.4 g/dL (3.4-4.8); Alkaline Phosphatase 93 U/L (40-110); Anion Gap 14 mmol/L (10-20); BUN (Urea Nitrogen) 17 mg/dL (9.8-20.1); Bilirubin, Total 0.3 mg/dL (0.2-1.2); Calc. Creatinine Clearance 61 mL/min (70-130); Calcium 8.8 mg/dL (7.8-10.44); Carbon Dioxide 24 mmol/L (23-31); Chloride 107 mmol/L (98-107); Estimated GFR 51; Globulin 4.9 g/dL (2.4-3.5); Glucose 108 mg/dL (83-110); Potassium 4.8 mmol/L (3.5-5.1); Protein, Total 7.3 g/dL (5.8-8.1); Sodium 140 mmol/L (136-145)
[2023-03-27 10:57] LABS: #Eosinphils 0.1 10x3/uL (0.0-0.5); #Monocytes 0.5 10x3/uL (0.0-1.1); #Neutrophils 8.8 10x3/uL (1.5-8.4); %Basophils 0.2 % (0.0-2.0); %Eosinophils 0.8 % (0.0-6.0); %Lymphocytes 11.5 % (18.0-47.0); %Monocytes 4.8 % (0.0-10.0); %Neutrophils 82.2 % (40.0-75.0); Hematocrit 30.1 % (34.9-44.5); Hemoglobin 9.2 g/dL (12.0-15.5); Mean Corpuscular HGB CONC 30.6 g/dL (32.0-36.0); Mean Corpuscular Hemoglobin 25.4 pg (27.0-33.0); Mean Corpuscular Volume 83.1 fl (81.6-98.3); Mean Platelet Volume 10.4 fl (7.4-10.4); Platelet Count 332 10x3/uL (150-450); RBC Distribution Width 18.3 % (11.5-14.5); Red Blood Cell (RBC) Count 3.62 10x6/uL (3.90-5.03); White Blood Cell (WBC) Count 10.7 10x3/uL (3.5-10.5)
[2023-03-27 12:10] VITALS: BP 161/74
[2023-03-27] MEDS ORDERED: Isosorbide Dinitrate 10 MG TAB PO SCH (21:00)
== END 2023-03-27 14:08 | DRG 853 ==
LOC: CSHERS 10:52 → CSHERHOLD 15:26 → CSHTELE 18:51 → OBSVTOIN 03-20 07:56
PROVIDERS: ADMIT Internal Medicine; ATTEND Internal Medicine
PROC: 3E03329 Introduction of Other Anti-infective into Peripheral Vein, Percutaneous Approach (ICD-10-PCS; 2023-03-20)
PROC: 30233N1 Transfusion of Nonautologous Red Blood Cells into Peripheral Vein, Percutaneous Approach (ICD-10-PCS; 2023-03-21)
PROC: 0DJ08ZZ Inspection of Upper Intestinal Tract, Via Natural or Artificial Opening Endoscopic (ICD-10-PCS; 2023-03-24)
PROC: 02HV33Z Insertion of Infusion Device into Superior Vena Cava, Percutaneous Approach (ICD-10-PCS; 2023-03-25)
PROC: B5181ZA Fluoroscopy of Superior Vena Cava using Low Osmolar Contrast, Guidance (ICD-10-PCS; 2023-03-25)
PROC: B548ZZA Ultrasonography of Superior Vena Cava, Guidance (ICD-10-PCS; 2023-03-25)
PROC: 0JB70ZZ Excision of Back Subcutaneous Tissue and Fascia, Open Approach (ICD-10-PCS; principal; 2023-03-26)
DX: A41.59 Other Gram-negative sepsis (principal); G93.41 Metabolic encephalopathy; L89.154 Pressure ulcer of sacral region, stage 4; I50.43 Acute on chronic combined systolic (congestive) and diastolic (congestive) heart failure; I13.0 Hypertensive heart and chronic kidney disease with heart failure and stage 1 through stage 4 chronic kidney disease, or unspecified chronic kidney disease; I48.21 Permanent atrial fibrillation; D62 Acute posthemorrhagic anemia; I96 Gangrene, not elsewhere classified; N30.01 Acute cystitis with hematuria; N18.9 Chronic kidney disease, unspecified; F17.210 Nicotine dependence, cigarettes, uncomplicated; I34.0 Nonrheumatic mitral (valve) insufficiency; E83.42 Hypomagnesemia; R91.1 Solitary pulmonary nodule; R44.1 Visual hallucinations; E78.5 Hyperlipidemia, unspecified; D63.1 Anemia in chronic kidney disease; I44.7 Left bundle-branch block, unspecified; L89.899 Pressure ulcer of other site, unspecified stage; I49.5 Sick sinus syndrome; E86.0 Dehydration; Z79.899 Other long term (current) drug therapy; Z79.82 Long term (current) use of aspirin; Z79.01 Long term (current) use of anticoagulants; Z90.710 Acquired absence of both cervix and uterus
CPT/HCPCS: 36415; 36416; 36430; 36569; 51701; 70450; 71045; 71260; 74176; 80048; 80053; 81001; 82274; 82607; 83605; 83735; 83880; 84443; 84484; 85014; 85018; 85025; 86850; 86900; 86901; 87040; 87070; 87077; 87086; 87102; 87116; 87149; 87186; 87205; 87206; 93005; 93010; 96365; 96366; 96367; 96375; 96376; 97139; C1751; C9113; G0378; J0692; J0696; J1940; J3370; J3475; J3490; P9016; Q9967